=== PATIENT | female | born 2000 | race Caucasian/White ===

== ENCOUNTER → 2024-01-16 08:59 | Outpatient (REF) | payer OTHER, SELFPAY | LOC: HWRAD 08:59 | PROVIDERS: ATTENDING PHYSICIAN Internal Medicine | DX: R59.0 Localized enlarged lymph nodes (principal) | CPT/HCPCS: 72193; Q9967 ==

== ENCOUNTER 2024-05-01 10:49 | Emergency (ER) | payer OTHER, SELFPAY ==
[2024-05-01 10:52] VITALS: BP 135/94
--- NOTE | 2024-05-01 10:57 | ED.GENMED ---
ED Provider Triage
<Izaiah Butler PA-C - Last Filed: 05/01/24 10:58>
-
Patient seen by provider in Triage?: Seen in Triage
23-year-old female presents with onset of sharp left-sided abdominal pain this morning been fairly constant with associated nausea. No vomiting. Normal bowel movements. Last menstrual cycle 27 days ago. The pain is along the left side of the
abdomen. She has a history of enlarged lymph nodes in the groin. She had a CT of her pelvis this summer for that reason. No fever with this. She is healthy otherwise. Recommended further treatment with labs and CT. Oral contrast ordered
History of Present Illness
<Izaiah Butler PA-C - Last Filed: 05/01/24 10:58>
General
Chief Complaint: Abdominal Symptoms
Time Seen by Provider: 05/01/24 11:40
<Guille Galaviz PA-C - Last Filed: 05/01/24 14:33>
General
Source: patient
History of Present Illness
History of Present Illness:
23-year-old female presenting to the emergency department from work for evaluation of gradually worsening left-sided abdominal pain which she states starts from the left hip/groin radiating up toward ribs accompanied with mild nausea with symptoms
now mostly improved. Patient did not take anything for pain prior to arrival. She denies any other associated symptoms. She does note that she is currently undergoing a workup for enlarged lymph nodes on the same left groin and has been seen by
hematology but does not yet have a diagnosis. Patient denies any fevers, chills, night sweats, abnormal weight loss, history of IV drug abuse or any other concerns. Patient is on oral contraceptives, last menstrual period early April. No other
concerns at this time.
Past History
<Guille Galaviz PA-C - Last Filed: 05/01/24 14:33>
Past History
ED Past Medical History: None
ED Past Surgical History: None
Social History
Tobacco: Non-smoker
Alcohol: Occasional
Drug: None
Personal: Single
Living: with family
Employment: Employed (middle school teacher)
Review of Systems
<Guille Galaviz PA-C - Last Filed: 05/01/24 14:33>
Review of Systems
All Other Systems: ROS reviewed and negative except as documented in HPI and ROS
Phy Exam
<Guille Galaviz PA-C - Last Filed: 05/01/24 14:33>
Physical Exam
Physical Exam:
GENERAL: Alert , in no apparent distress
EYE: clear conjunctiva b/l
HEAD: NCAT
ENT: mmm.
CARDIAC: Regular rate and rhythm .
LUNGS: Clear breath sounds bilaterally, no acute respiratory distress, no wheezes/rales/rhonchi
ABDOMEN: Chaperoned by cytopathology technologist Omega: soft, without focal tenderness, no r/g, no cvat, small singular mobile lymph node within the left groin without any overlying erythema
NEUROLOGICAL: Alert and oriented
SKIN: Warm and dry, skin intact.
MUSCULOSKELETAL: No edema, well perfused.
PSYCH: Normal and appropriate interaction.
Scores
<Guille Galaviz PA-C - Last Filed: 05/01/24 14:33>
Heart Failure Risk
Heart Failure Risk Score: Not Applicable
Heart Score for Chest Pain Patients
STEMI patient?: Not applicable
Withdrawal Assessment of Alcohol
Withdrawal Assessment Completed?: Not applicable
Course
<Izaiah Butler PA-C - Last Filed: 05/01/24 10:58>
Orders/Labs/Results
Orders:
Orders
05/01/24 10:53
Urinalysis Reflex To Culture Urgent
Date Specimen was Collected: 05/01/24
Time Specimen was Collected: 11:16
05/01/24 10:54
Test Result ONCE
05/01/24 10:56
CT Abd/pel W Iv And Oral Contr Urgent
Comment:
Reason For Exam: left sided abdominal pain
Iohexol [Omnipaque] See Protocol PO NOW STA
05/01/24 11:00
Complete Blood Count/With Diff Urgent
Comprehensive Metabolic Panel Urgent
HCG, Serum Qualitative Screen Urgent
05/01/24 12:08
Aspirin Chewable [Low Strength Aspirin] 324 mg PO NOW STA
05/01/24 11:00
05/01/24 11:00
Vital Signs
Initial and Last Documented VS:
Initial Vital Signs
Temp Pulse Resp BP Pulse Ox
98.1 F 77 18 135/94 98
05/01/24 10:52 05/01/24 10:52 05/01/24 10:52 05/01/24 10:52 05/01/24 10:52
Last Documented Vital Signs
Temp Pulse Resp BP Pulse Ox
98.1 F 74 18 128/76 99
05/01/24 10:52 05/01/24 13:06 05/01/24 13:06 05/01/24 13:06 05/01/24 13:06
<Guille Galaviz PA-C - Last Filed: 05/01/24 14:33>
Orders/Labs/Results
Orders:
Orders
05/01/24 10:53
Urinalysis Reflex To Culture Urgent
Date Specimen was Collected: 05/01/24
Time Specimen was Collected: 11:16
05/01/24 10:54
Test Result ONCE
05/01/24 10:56
CT Abd/pel W Iv And Oral Contr Urgent
Comment:
Reason For Exam: left sided abdominal pain
Iohexol [Omnipaque] See Protocol PO NOW STA
05/01/24 11:00
Complete Blood Count/With Diff Urgent
Comprehensive Metabolic Panel Urgent
HCG, Serum Qualitative Screen Urgent
05/01/24 12:08
Aspirin Chewable [Low Strength Aspirin] 324 mg PO NOW STA
05/01/24 11:00
05/01/24 11:00
Vital Signs
Initial and Last Documented VS:
Initial Vital Signs
Temp Pulse Resp BP Pulse Ox
98.1 F 77 18 135/94 98
05/01/24 10:52 05/01/24 10:52 05/01/24 10:52 05/01/24 10:52 05/01/24 10:52
Last Documented Vital Signs
Temp Pulse Resp BP Pulse Ox
98.1 F 74 18 128/76 99
05/01/24 10:52 05/01/24 13:06 05/01/24 13:06 05/01/24 13:06 05/01/24 13:06
<Guille Galaviz PA-C - Last Filed: 05/01/24 14:33>
MDM/Problems Addressed
Differential Diagnosis Includes:
colitis, kidney stone, UTI/pyelo, GERD/gastritis, ovarian cyst
MDM/Problems Addressed:
23-year-old female presenting to the emergency department for evaluation of sudden on set left-sided abdominal pain prior to arrival but pain currently much improved. Patient also notes mild nausea but this is also improved. Abdominal exam
reassuring. She does have a lymph node in the left groin which she is currently undergoing workup for with oncology but report this lymph node is reportedly benign. No fevers or infectious symptoms. Will check labs and CT imaging. Disposition
pending. Patient declining anything for symptoms at this time.
<Guille Galaviz PA-C - Last Filed: 05/01/24 14:33>
*Radiology
Radiology exam reviewed: radiology read reviewed
*Pulse Oximetry
Patient hypoxic: no
*Critical Care Note
Total Time (30-74mins, 75-104mins- exclusive of procedures): Not Applicable
<Guille Galaviz PA-C - Last Filed: 05/01/24 14:33>
Patient Management
Escalation/DeEscalation of care consider admission/obs:
Patient's CAT scan shows uncomplicated colitis. She is no fever, no leukocytosis and pain is currently minimal. At this time I feel supportive measures are reasonable treatment option. Patient advised on return precautions to the ER including
fevers or worsening pain. Wilkes diet for the next 24 to 48 hours. Follow-up with primary care provider. Patient feels comfortable with this plan. Stable for discharge home.
ED Attending Note
<Izaiah Butler PA-C - Last Filed: 05/01/24 10:58>
-
Portions of this chart may have been created with voice recognition software.� Occasional wrong word or��sound alike� substitutions may have occurred due to the inherent limitations of voice recognition software.
Discharge Plan
Departure
Patient Disposition: Home (Routine Discharge)
Date of Disposition: 05/01/24
Time of Disposition: 13:57
Patient with high blood pressure during this ER visit?: No
Discharge Problem:
Abdominal pain
Instructions: Colitis (DC)
Referrals:
Ester Valadez, DO [Family Provider] -
Interventions
Interventions:
*Risk Screen - Suicide Last Done: 05/01/24 10:52
*General Assessment Last Done: 05/01/24 10:52
*Neglect/Abuse Screening Last Done: 05/01/24 10:52
ED- Fall Risk Assessment Last Done: 05/01/24 11:18
TW-Ygndfy-Zxlkaxjswk Assessment Last Done: 05/01/24 11:18
Discharge Date and Time
Print Language: ARABIC
[2024-05-01] MEDS: OMNIPAQUE 50 ML PO (11:02)
[2024-05-01 11:10] LABS: % Basophils 0.3 % (0-2); % Eosinophils 0.7 % (0-6); % Immature Granulocytes 0.3 % (0-0.5); % Lymphocytes 42.5 % (20.5-51.1); % Monocytes 5.7 % (1.7-9.3); % Neutrophils 50.5 % (42.2-75.2); Absolute Eosinophils 0.1 10^3/uL (0-0.7); Absolute Lymphocytes 3.1 10^3/uL (1.2-3.4); Absolute Monocytes 0.4 10^3/uL (0.1-0.6); Absolute Neutrophils 3.7 10^3/uL (1.4-6.5); Hematocrit 39.2 % (37.0-47.0); Hemoglobin 13.4 g/dL (12.0-16.0); Mean Corp Hgb Conc. 34.2 g/dL (33.0-37.0); Mean Corpuscular Hgb 30.2 pg (27.0-31.0); Mean Corpuscular Volume 88.3 fL (81.0-99.0); Mean Platelet Volume 8.7 fL (7.4-10.4); Nucleated Red Blood Cells % 0 %; Platelet Count 359 10^3/uL (130-400); Red Blood Cell Count 4.44 10^6/uL (4.20-5.40); Red Cell Dist. Width 12.2 % (11.5-14.5); White Blood Cell Count 7.3 10^3/uL (4.8-10.8)
[2024-05-01 11:24] LABS: HCG, Serum Qualitative Screen Negative
[2024-05-01 11:28] LABS: ALT (SGPT) 16 U/L (0-35); AST (SGOT) 21 U/L (14-36); Albumin 4.8 g/dl (3.5-5.0); Alkaline Phosphatase 45 U/L (38-126); Blood Urea Nitrogen 8 mg/dl (7-17); Calcium 9.9 mg/dl (8.4-10.2); Carbon Dioxide 25 mmol/L (22-30); Chloride 103 mmol/L (98-107); Glucose 92 mg/dl (70-99); Potassium 3.8 mmol/L (3.5-5.1); Sodium 140 mmol/L (135-145); Total Bilirubin 0.3 mg/dl (0.2-1.3); Total Protein 7.5 g/dl (6.3-8.2); eGFR > 60.00
[2024-05-01 13:06] VITALS: BP 128/76
== END 2024-05-01 15:46 | disposition home or self-care (01) ==
LOC: EMR 10:49
PROVIDERS: Physician Assistant; EMERGENCY PHYSICIAN Student in an Organized Health Care Education/Training Program; FAMILY PHYSICIAN Family Medicine
DX: R10.9 Unspecified abdominal pain (principal)
CPT/HCPCS: 99284; 74177; 80053; 84703; 85025; Q9967